=== PATIENT | male | born 1965 | race African-American/Black ===

== ENCOUNTER 2016-07-05 15:15 | Outpatient (RCR) | payer OTHER ==
[~2016-07-05 15:15] MED LIST: /AMLO25TA PO; /DIVA50TA PO; /HCTZ25TA PO; /MOXI40TA PO; /PANT40TA PO; ABIL15TA2 PO; ABIL400I IM; ATEN50TA9 PO; ATOR40TA PO; ATRIPLA PO; BENZ1TA PO; CHLO25TA3 PO; COLA100C PO; COUM7.5T PO; DEPA250T2 PO; DEPA500T2 PO; FLUP5TAB PO; IBUP80TA PO; LIPI10TA PO; MELO7.5T3 PO; MULTTAB4 PO; NORCOTAB PO; PERCOCET PO; PROT1TAB2 PO; SIMV40TA2 PO; TENO1TAB4 PO; TRAM50TA2 PO; TYLE325T5 PO; VITA500046 PO; calcium; calcium PO; hygroton
== END 2016-07-06 ==
LOC: M PT 15:15
PROVIDERS: ATTEND Physician Assistant Surgical
DX: Z51.89 Encounter for other specified aftercare (principal); S92.352D Displaced fracture of fifth metatarsal bone, left foot, subsequent encounter for fracture with routine healing

== ENCOUNTER → 2016-07-09 | Outpatient (CLI) | payer OTHER ==
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
--- NOTE | 2016-07-09 12:29 | REP ---
Lumbar spine series: Three views. History: Radiculopathy. Findings: Lumbar vertebral body heights are preserved. Alignment is normal. There is mild disc space narrowing at L4-5 and at L5-S1. Pedicles and posterior elements are intact. There is osteoarthritic facet hypertrophy and sclerosis on the right at L4-5 and L5-S1. Psoas margins are symmetric. Sacrum and SI joints are intact. Impression: Early degenerative disc and osteoarthritic facet changes. Signed by Kwabena Lewis MD 07/09/2016 07:25 P
== END ==
LOC: M LAB 09:30
PROVIDERS: ATTEND Chiropractor
DX: M54.13 Radiculopathy, cervicothoracic region (principal)

== ENCOUNTER 2016-07-14 15:15 | Outpatient (RCR) | payer OTHER | END 2016-08-03 | LOC: M PT 15:15 | PROVIDERS: ATTEND Physician Assistant Surgical | DX: Z51.89 Encounter for other specified aftercare (principal); S92.352D Displaced fracture of fifth metatarsal bone, left foot, subsequent encounter for fracture with routine healing ==

== ENCOUNTER → 2016-08-05 | Outpatient (REF) | payer OTHER ==
[2016-08-05 13:28] LABS: ALBUMIN 4.1 GM/DL (3.2-5.2); ALBUMIN/GLOBULIN RATIO 1.28 (1.00-1.93); ALKALINE PHOSPHATASE 87 U/L (45-117); ALT/SGPT 60 U/L (12-78); ANION GAP 11 MEQ/L (8-16); AST/SGOT 44 U/L (15-37); BILIRUBIN,TOTAL 0.3 MG/DL (0.2-1.0); BLOOD UREA NITROGEN 12 MG/DL (7-18); CALCIUM LEVEL 9.2 MG/DL (8.5-10.1); CARBON DIOXIDE LEVEL 26 MEQ/L (21-32); CHLORIDE LEVEL 105 MEQ/L (98-107); CHOLESTEROL LEVEL 212 MG/DL (<200); CREATININE FOR GFR 0.94 MG/DL (0.70-1.30); GLOMERULAR FILTRATION RATE > 60.0 (>56); GLUCOSE, FASTING 90 MG/DL (70-105); POTASSIUM SERUM 4.5 MEQ/L (3.5-5.1); SODIUM LEVEL 142 MEQ/L (136-145); TOTAL PROTEIN 7.3 GM/DL (6.4-8.2); TRIGLYCERIDES LEVEL 132 MG/DL (<150)
[2016-08-07 00:15] LABS: %CD3+CD4+CD8+ 0.8 % (Not Estab.); %CD3+CD4+CD8- 33.9 % (Not Estab.); %CD3+CD4-CD8- 1.1 % (Not Estab.); ABS CD3+CD4+CD8+ 20 /uL (Not Estab.); ABS CD3+CD4+CD8- 848 /uL (Not Estab.); ABS CD3+CD4-CD8+ 775 /uL (Not Estab.); ABS CD3+CD4-CD8- 28 /uL (Not Estab.); CD4/CD8 NYSDOH RATIO 1.09 (Not Estab.); Eosinophils 3 % (.); HCT 39.8 % (37.5-51.0); HGB 13.7 g/dL (12.6-17.7); Monocytes 8 % (.); Neutrophils 28 % (.); WBC 4.1 x10E3/uL (3.4-10.8)
== END ==
LOC: M SFHCPLAZ 10:29
PROVIDERS: ATTEND Internal Medicine Infectious Disease
DX: B20 Human immunodeficiency virus [HIV] disease (principal); E78.5 Hyperlipidemia, unspecified; I10 Essential (primary) hypertension

== ENCOUNTER → 2016-09-07 | Outpatient (REF) | payer OTHER, MEDICAID ==
[~2016-09-07] MED LIST changes: -COLA100C PO; +COLA100C3 PO
[2016-09-07 16:09] LABS: URIC ACID 5.4 MG/DL (3.5-7.2)
[2016-09-07 16:48] LABS: BASO % 0.4 % (0.0-1.0); EOS # 0.1 K/mm3 (0.0-0.50); EOS % 2.9 % (0.0-3.0); LARGE UNSTAINED CELL # 0.1 K/mm3 (0.0-0.4); LARGE UNSTAINED CELL % 1.5 % (0.0-4.0); LYMPH # 2.3 K/mm3 (1.5-4.5); LYMPH % 59.1 % (24.0-44.0); MEAN CORPUSCULAR HEMOGLOBIN 31.6 pg (27.0-33.0); MEAN CORPUSCULAR HGB CONC 33.7 g/dl (32.0-36.5); MEAN CORPUSCULAR VOLUME 93.9 fl (80.0-96.0); MONO # 0.2 K/mm3 (0.0-0.8); MONO % 4.7 % (0.0-5.0); NEUTROPHILS # 1.2 K/mm3 (1.8-7.7); NEUTROPHILS % 31.4 % (36.0-66.0); PLATELET COUNT, AUTOMATED 194 k/mm3 (150-450); WHITE BLOOD COUNT 3.8 K/mm3 (4.0-10.0)
[2016-09-07 18:02] LABS: ERYTHROCYTE SEDIMENTATION RATE 13 mm/hr (0-20)
[2016-09-10 00:08] LABS: Lyme Disease IgG/IgM Antibodie <0.91 ISR (0.00-0.90); Lyme Disease IgM Ab Quantitati <0.80 index (0.00-0.79)
== END ==
LOC: M LABDRAW1 15:25
PROVIDERS: ATTEND Physician Assistant Surgical
DX: M17.0 Bilateral primary osteoarthritis of knee (principal)

== ENCOUNTER → 2016-10-26 | Outpatient (CLI) | payer OTHER ==
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
== END ==
LOC: M RAD 13:33
PROVIDERS: ATTEND Internal Medicine Infectious Disease
DX: R93.8 Abnormal findings on diagnostic imaging of other specified body structures (principal)

== ENCOUNTER → 2016-11-17 | Outpatient (CLI) | payer OTHER ==
--- NOTE | 2016-11-17 21:20 | ECHO ---
DATE OF PROCEDURE: 11/17/2016 REFERRING PHYSICIAN: Gonzalo Mi MD PATIENT LOCATION: Outpatient REASON FOR ECHOCARDIOGRAM: Abnormal EKG. 2D MEASUREMENTS: IVS: 1.2 cm LV: 4.7 cm LVPW: 1.2 cm LA: 3.5 cm Aorta: 3.6 cm IVC: 1.7 cm DOPPLER MEASUREMENTS: Peak velocity across the aortic valve: 1.8 m/s Peak velocity across the LVOT: 0.62 m/s Mitral E: 0.81, Mitral A: 0.58, with a ratio of 1.4 2D COMMENTS: 1. Normal left ventricular size and systolic function with borderline increased left ventricular wall thickness. Left ventricular systolic ejection fraction is estimated at 60 to 65%. 2. Normal left atrium. Normal right atrium and right ventricle. 3. The atrial septum appeared to be normal without evidence of defect or shunt. 4. Normal aortic root. 5. No pericardial effusion seen. 6. Mildly calcified aortic valve, could not rule out a bicuspid type aortic valve. Normal mitral valve, tricuspid valve and pulmonic valve. The pulmonary artery branches also appeared to be normal in size. 7. The inferior vena cava was normal in size, central venous pressure is most likely normal. DOPPLER: It detects probably moderate aortic regurgitation and mild to moderate mitral regurgitation. There was a maximum gradient of 13.2 mmHg across the aortic valve with a mean gradient of 8 mmHg. Assessment of the left ventricular diastolic function appeared to be normal. IMPRESSION: 1. Normal global left ventricular systolic function with probably mild concentric left ventricular hypertrophy. Left ventricular diastolic function appeared to be normal. 2. Aortic valve sclerosis with probably moderate aortic regurgitation and trivial aortic stenosis. Cannot rule out a bicuspid aortic valve with mild sclerosis. 3. Mild to moderate mitral regurgitation with mitral annulus calcification. Subjectively, the left atrium appeared to be mildly enlarged. 4. Normal inferior vena cava/IVC.
== END ==
LOC: M CARPUL 09:44
PROVIDERS: ATTEND Internal Medicine Infectious Disease
DX: I51.7 Cardiomegaly (principal)

== ENCOUNTER → 2017-02-17 | Outpatient (REF) | payer OTHER ==
[~2017-02-17] MED LIST changes: -ABIL15TA2 PO; +ABIL1TAB12 PO; -ATOR40TA PO; +ATOR40TA75 PO; -COLA100C3 PO; +COLA100C5 PO; +QUET1TAB8; +QUET5TAB
[2017-02-17 13:15] LABS: ALBUMIN 4.3 GM/DL (3.2-5.2); ALBUMIN/GLOBULIN RATIO 1.13 (1.00-1.93); ALKALINE PHOSPHATASE 99 U/L (45-117); ALT/SGPT 83 U/L (12-78); ANION GAP 9 MEQ/L (8-16); AST/SGOT 57 U/L (15-37); BILIRUBIN,TOTAL 0.5 MG/DL (0.2-1.0); BLOOD UREA NITROGEN 15 MG/DL (7-18); CALCIUM LEVEL 9.2 MG/DL (8.5-10.1); CARBON DIOXIDE LEVEL 28 MEQ/L (21-32); CHLORIDE LEVEL 105 MEQ/L (98-107); CREATININE FOR GFR 0.87 MG/DL (0.70-1.30); GLOMERULAR FILTRATION RATE > 60.0 (>56); GLUCOSE, FASTING 76 MG/DL (70-105); POTASSIUM SERUM 4.1 MEQ/L (3.5-5.1); SODIUM LEVEL 142 MEQ/L (136-145); TOTAL PROTEIN 8.1 GM/DL (6.4-8.2)
[2017-02-19 00:07] LABS: %CD3+CD4+CD8+ 0.6 % (Not Estab.); %CD3+CD4+CD8- 36.8 % (Not Estab.); %CD3+CD4-CD8+ 29.8 % (Not Estab.); %CD3+CD4-CD8- 1.3 % (Not Estab.); ABS CD3+CD4+CD8+ 11 /uL (Not Estab.); ABS CD3+CD4+CD8- 662 /uL (Not Estab.); ABS CD3+CD4-CD8+ 536 /uL (Not Estab.); ABS CD3+CD4-CD8- 23 /uL (Not Estab.); CD4/CD8 NYSDOH RATIO 1.23 (Not Estab.); Eosinophils 5 % (.); HCT 43.1 % (37.5-51.0); HGB 15.1 g/dL (12.6-17.7); Monocytes 8 % (.); Neutrophils 41 % (.)
== END ==
LOC: M SFHCPLAZ 10:44
PROVIDERS: ATTEND Internal Medicine Infectious Disease
DX: B20 Human immunodeficiency virus [HIV] disease (principal); R63.4 Abnormal weight loss; E55.9 Vitamin D deficiency, unspecified

== ENCOUNTER 2017-02-20 21:12 | Emergency (ER) | payer OTHER ==
[~2017-02-20] VITALS: Ht 193 cm; Wt 168.0 kg
[~2017-02-20 21:12] MED LIST changes: -QUET1TAB8; -QUET5TAB
[2017-02-20] MEDS ORDERED: QUET5TAB (21:30)
[2017-02-20] MEDS ORDERED: QUET1TAB8 (21:30)
[2017-02-20] MEDS ORDERED: PROPOFOL 200 MG/20 ML VIAL As Ordered ONE (21:53)
[2017-02-20] MEDS ORDERED: NS 1,000 ML IV SCH (21:53)
[2017-02-20] MEDS ORDERED: PROPOFOL 200 MG/20 ML VIAL IV PRN (22:00)
[2017-02-20] MEDS ORDERED: ONDANSETRON 4MG/2ML VIAL (J2405) IV ONE (22:00)
[2017-02-20] MEDS ORDERED: KETAMINE HCL 200 MG/20 ML VIAL IV ONE (22:00)
[2017-02-20] MEDS ORDERED: ATROPINE SULF 0.4 MG/ML 1ML VIAL (J0461) IV STA (22:23)
[2017-02-20] MEDS ORDERED: MORPHINE 4 MG/ML 1ML SYRINGE IV ONE (22:30)
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
[2017-02-21 01:36] VITALS: BP 169/98; O2SAT 99
== END 2017-02-21 01:38 | disposition home or self-care (01) ==
LOC: M ED 21:12
DX: M24.411 Recurrent dislocation, right shoulder (principal); B20 Human immunodeficiency virus [HIV] disease; Z79.899 Other long term (current) drug therapy
CPT/HCPCS: 23650; 73020; 73030; 93041; 96374; 96375; 99152; 99291; J0461; J2405

== ENCOUNTER → 2017-08-04 | Outpatient (REF) | payer OTHER ==
[2017-08-04 13:20] LABS: APPEARANCE, URINE CLEAR (CLEAR); BACTERIA, URINE AUTO NEGATIVE (NEGATIVE); BILIRUBIN, URINE AUTO NEGATIVE (NEGATIVE); BLOOD, URINE BLOOD NEGATIVE (NEGATIVE); COLOR, URINE YELLOW (YELLOW); GLUCOSE, URINE (UA) AUTO NEGATIVE (NEGATIVE); KETONE, URINE AUTO NEGATIVE (NEGATIVE); LEUKOCYTE ESTERASE, URINE AUTO NEGATIVE (NEGATIVE); MUCUS, URINE SMALL (NEGATIVE); NITRITE, URINE AUTO NEGATIVE (NEGATIVE); PROTEIN, URINE AUTO NEGATIVE (NEGATIVE); RBC, URINE AUTO 1 /HPF (0-3); SPECIFIC GRAVITY URINE AUTO 1.032 (1.002-1.035); SQUAMOUS EPITHELIAL CELL UR AU 0 /HPF (0-6); UROBILINOGEN, URINE AUTO 0.2 mg/dL (0.0-2.0); WBC, URINE AUTO 1 /HPF (0-3)
[2017-08-04 14:03] LABS: ALBUMIN 4.2 GM/DL (3.2-5.2); ALBUMIN/GLOBULIN RATIO 1.27 (1.00-1.93); ALKALINE PHOSPHATASE 94 U/L (45-117); ALT/SGPT 74 U/L (12-78); ANION GAP 6 MEQ/L (8-16); AST/SGOT 69 U/L (7-37); BILIRUBIN,TOTAL 0.4 MG/DL (0.2-1.0); BLOOD UREA NITROGEN 14 MG/DL (7-18); CALCIUM LEVEL 9.1 MG/DL (8.5-10.1); CARBON DIOXIDE LEVEL 29 MEQ/L (21-32); CHLORIDE LEVEL 106 MEQ/L (98-107); CREATININE FOR GFR 0.92 MG/DL (0.70-1.30); GLOMERULAR FILTRATION RATE > 60.0 (>56); GLUCOSE, FASTING 82 MG/DL (70-100); POTASSIUM SERUM 4.3 MEQ/L (3.5-5.1); SODIUM LEVEL 141 MEQ/L (136-145); TOTAL PROTEIN 7.5 GM/DL (6.4-8.2)
[2017-08-04 15:11] LABS: VITAMIN B12 LEVEL 239 PG/ML
[2017-08-04 15:14] LABS: TOTAL 25(OH) VITAMIN D 53.3 NG/ML (30.0-100.0)
[2017-08-04 16:06] LABS: CHLAMYDIA DNA AMPLIFICATION NEGATIVE (NEGATIVE); GC DNA AMPLIFICATION NEGATIVE (NEGATIVE)
[2017-08-06 11:13] LABS: QUANTIFERON GOLD TB Positive (Negative); TB Test (QFT) Antigen 7.14 IU/mL (.); TB Test (QFT) Antigen Minus Ni 5.45 IU/mL (.); TB Test (QFT) Mitogen 7.04 IU/mL (.); TB Test (QFT) Nil 1.69 IU/mL (.)
[2017-08-09 00:06] LABS: % CD8 Pos Lymph 28.1 % (12.0-35.5); %CD4 Pos Lymphs 43.6 % (30.8-58.5); ABS Eosinophils 0.1 x10E3/uL (0.0-0.4); ABS Lymphs 2.2 x10E3/uL (0.7-3.1); ABS Monocytes 0.5 x10E3/uL (0.1-0.9); ABS Neutophils 1.4 x10E3/uL (1.4-7.0); Abs CD4 Helper 959 /uL (359-1519); Abs CD8 Suppres 618 /uL (109-897); CD4/CD8 Ratio 1.55 (0.92-3.72); Eosinophils 3 % (Not Estab.); HCT 39.6 % (37.5-51.0); HGB 13.6 g/dL (13.0-17.7); HIV-1 RNA PCR QUANT 2 LC550285 <20 copies/mL (.); Immature Grans 0 % (Not Estab.); Lymphocytes 52 % (Not Estab.); MCH 31.6 pg (26.6-33.0); MCHC 34.3 g/dL (31.5-35.7); MCV 92 fL (79-97); Monocytes 11 % (Not Estab.); Neutrophils 33 % (Not Estab.); Platelets 225 x10E3/uL (150-379); RBC 4.31 x10E6/uL (4.14-5.80); RDW 13.8 % (12.3-15.4); WBC 4.3 x10E3/uL (3.4-10.8)
== END ==
LOC: M SFHCPLAZ 10:38
DX: B20 Human immunodeficiency virus [HIV] disease (principal); R94.5 Abnormal results of liver function studies; Z11.3 Encounter for screening for infections with a predominantly sexual mode of transmission; E55.9 Vitamin D deficiency, unspecified
CPT/HCPCS: 82746

== ENCOUNTER → 2017-12-15 | Outpatient (CLI) | payer OTHER ==
[2017-12-15 10:34] LABS: AMORPHOUS SEDIMENT SMALL (NEGATIVE); APPEARANCE, URINE CLEAR (CLEAR); BACTERIA, URINE AUTO NEGATIVE (NEGATIVE); BILIRUBIN, URINE AUTO NEGATIVE (NEGATIVE); BLOOD, URINE BLOOD NEGATIVE (NEGATIVE); COLOR, URINE YELLOW (YELLOW); GLUCOSE, URINE (UA) AUTO NEGATIVE (NEGATIVE); KETONE, URINE AUTO NEGATIVE (NEGATIVE); LEUKOCYTE ESTERASE, URINE AUTO NEGATIVE (NEGATIVE); MUCUS, URINE SMALL (NEGATIVE); NITRITE, URINE AUTO NEGATIVE (NEGATIVE); PROTEIN, URINE AUTO NEGATIVE (NEGATIVE); RBC, URINE AUTO 4 /HPF (0-3); SPECIFIC GRAVITY URINE AUTO 1.032 (1.002-1.035); SQUAMOUS EPITHELIAL CELL UR AU 0 /HPF (0-6); UROBILINOGEN, URINE AUTO 0.2 mg/dL (0.0-2.0); WBC, URINE AUTO 1 /HPF (0-3)
[2017-12-15 10:51] LABS: ALBUMIN 4.1 GM/DL (3.2-5.2); ALBUMIN/GLOBULIN RATIO 1.24 (1.00-1.93); ALKALINE PHOSPHATASE 102 U/L (45-117); ALT/SGPT 97 U/L (12-78); ANION GAP 9 MEQ/L (8-16); AST/SGOT 46 U/L (7-37); BILIRUBIN,TOTAL 0.3 MG/DL (0.2-1.0); BLOOD UREA NITROGEN 19 MG/DL (7-18); CALCIUM LEVEL 9.1 MG/DL (8.5-10.1); CARBON DIOXIDE LEVEL 28 MEQ/L (21-32); CHLORIDE LEVEL 105 MEQ/L (98-107); CREATININE FOR GFR 0.84 MG/DL (0.70-1.30); GLOMERULAR FILTRATION RATE > 60.0 (>56); GLUCOSE, FASTING 91 MG/DL (70-100); SODIUM LEVEL 142 MEQ/L (136-145); TOTAL PROTEIN 7.4 GM/DL (6.4-8.2)
== END ==
LOC: M LAB 09:30
DX: B20 Human immunodeficiency virus [HIV] disease (principal)
CPT/HCPCS: 80053